=== PATIENT | female | born 1990 | race Caucasian/White ===

== ENCOUNTER → 2016-12-11 | Outpatient (CLI) | payer BC ==
[2016-12-11 14:31] LABS: Basophils % (A) 1 %; CH 29.9; CHCM 33.6; Eosinophils # (A) 0.1 k/uL (0-0.7); Eosinophils % (A) 2 %; HCT 39.9 % (34.0-46.0); HDW 2.41; HGB 13.2 gm/dL (11.4-16.0); Luc # (Auto) 0.07; Luc % (Auto) 2; Lymphocytes # (A) 1.6 k/uL (1.0-4.8); Lymphocytes % (A) 32 %; MCH 29.6 pg (25.0-35.0); MCHC 33.1 g/dL (31.0-37.0); MCV 89.5 fL (80.0-100.0); Mean Platelet Volume 6.3; Monocytes # (A) 0.2 k/uL (0-1.0); Monocytes % (A) 4 %; Neutrophils # (A) 2.9 k/uL (1.3-7.7); Neutrophils % (A) 59 %; RBC 4.46 m/uL (3.80-5.40); RDW 12.3 % (11.5-15.5); WBC 4.9 k/uL (3.8-10.6); WBC (Perox) 5.43
== END | disposition home or self-care (01) ==
LOC: LABPAT 14:14
PROVIDERS: ATTEND Obstetrics & Gynecology
DX: Z01.812 Encounter for preprocedural laboratory examination (principal)
CPT/HCPCS: 85025

== ENCOUNTER 2016-12-30 07:16 | Day surgery (SDC) | payer BC ==
[2016-12-24 16:19] VITALS: BMI 25.8
--- NOTE | 2016-12-29 12:14 | HP ---
DATE OF ADMISSION: This is a 26-year-old female 0 who presents for cold knife conization for a history of abnormal Pap smear, followed by colposcopy. Colposcopically directed biopsies were performed by me in the office on 11/18 16, along with an endometrial biopsy. Endometrial biopsy was limited, however consistent with focal weekly proliferative features and break down endometrium. Biopsies of the cervix on colposcopy revealed high-grade squamous intraepithelial lesion, performed by my nurse practitioner, Jenna Harvey. Patient was counseled regarding these results, and decision was made to proceed with cold knife conization and D&C. Lesion was noted to be on the cervix at approximately 10 o'clock. All questions are answered, ACOG pamphlet on this procedure have been provided. PAST MEDICAL HISTORY: Significant for Jaci's thyroiditis as well as migraine headaches. PAST SURGICAL HISTORY: Left ACL repair in 2017. CURRENT MEDICATIONS: Nature thyroid 32.5 mg, 2 tabs in the morning and 1 tab in the afternoon. Allergies include CODEINE to which she reports hypotension. Family history is significant for diabetes, heart disease and renal failure in the grandparents. REPRODUCTIVE HISTORY: Menarche began at the age of 15. Patient uses condoms for contraception. Menses are regular and on a monthly basis. SOCIAL HISTORY: Patient denies tobacco use. She works with local [employer]. She reports social alcohol use. Review of systems is otherwise negative. On exam, this is a pleasant young female, 5 feet 6 inches, 161 pounds, BMI 25. The general exam is within normal limits. HEENT exam reveals no obvious thyromegaly, good dentition, good range of motion in the neck. The breasts are bilaterally symmetric to inspection with no skin dimpling, nipple discharge or axillary lesions or masses. Abdomen is soft and nontender, no organosplenomegaly, active bowel sounds. No CVA tenderness. Extremities reveal no edema, good range of motion, good peripheral pulses. Cervix is nulliparous to inspection. On colposcopic examination, there are acetowhite changes and increased vascular changes at 10 o'clock. The uterus is otherwise small, mobile, nontender, midline. Negative adnexa bilaterally. IMPRESSION: High-grade intraepithelial lesion for cold knife conization and D&C. PLAN: The risks, benefits, and alternatives of this procedure have been discussed with the patient. All questions answered. She understands the risk of bleeding, infection, perforation or damage to the cervix, ureters, bowel, bladder, uterus. She understands the risks of anesthesia, aspiration, nerve damage or even . Again, pamphlets have been provided and patient has reviewed them. I believe the patient understands the discussion with no question or further reservation.
[~2016-12-30 07:16] MED LIST: DEXAMETHASONE SOD PHOSPHATE 10 MG/ML 1 ML VIAL IV ONE; MIDAZOLAM 2 MG/2 ML VIAL IV PRN; ONDANSETRON 4 MG/2 ML VIAL IVP ONE; SCOPOLAMINE 1.5MG/72HR PATCH TRANSDERM ONE; ceFAZolin 2 GM in SODIUM CHLORIDE 0.9% 100 ML IVPB ONE
[2016-12-30] MEDS ORDERED: LIDOCAINE 1% 20 ML VIAL (10MG/ML) FOR IV START INTRADERMA ONE (07:34)
[2016-12-30] MEDS: LACTATED RINGERS 1,000 ML IV SCH ×3 (07:35→11:25)
[2016-12-30] MEDS ORDERED: fentaNYL (PF) 50 MCG/ML 2 ML AMP ONE (08:44)
[2016-12-30] MEDS ORDERED: MIDAZOLAM 2 MG/2 ML VIAL ONE (08:44)
[2016-12-30] MEDS ORDERED: KETOROLAC 30 MG/ML 1 ML VIAL ONE (08:44)
[2016-12-30] MEDS ORDERED: LIDOCAINE 1% INJ 10MG/ML (20 ML MDV) ONE (08:44)
[2016-12-30] MEDS ORDERED: PROPOFOL 10 MG/ML 20 ML VIAL IV ONE (08:44)
[2016-12-30] MEDS ORDERED: VASOPRESSIN 20 UNIT/ML 1 ML VIAL SQ ONE (09:04)
[2016-12-30] MEDS ORDERED: FERRIC SUBSULFATE (MONSELS) JAR TOPICAL ONE (09:06)
--- NOTE | 2016-12-30 09:18 | P.OP ---
Date of Procedure: 12/30/16 Preoperative Diagnosis: High grade squamous intraepithelial lesion, possible glandular dysplasia, positive ECC. Postoperative Diagnosis: Pathology pending Procedure(s) Performed: D&C of the uterine cavity, cold knife conization, ECC Implants: Anesthesia: GETA Surgeon: Samia Cain Estimated Blood Loss (ml): 20 IV fluids (ml): 500 Urine output (ml): 200 Pathology: other (Intrauterine curettings, cold knife conization sutured tagged at 12:00, endocervical curettings post conization) Disposition: PACU Indications for Procedure: Operative Findings: Description of Procedure: Patient is brought to the operating suite. She is placed in the dorsal lithotomy position after general anesthetic is administered. The appropriate timeout is performed, urine hCG is negative. The cervix, vagina, perineal bodies are all prepped and draped in usual sterile fashion. Examination under anesthesia reveals an anteverted uterus, small and mobile, adnexa negative bilaterally. Bladder is drained for approximately 200 mL of clear yellow urine. Weighted speculum was placed into the vagina. The anterior lip of the cervix is grasped with a double-tooth tenaculum. Uterus sounds to 8 cm in the anteverted position. Cervix is gently and systematically dilated using Hanks dilators. A medium sharp curette is used and the uterine cavity is curettaged thoroughly. Specimen is sent to pathology. 0 Vicryl suture is then placed for hemostatic purposes on the left aspect of the cervix, and again on the right, and held with hemostats. The cervix is injected then with dilute Pitressin solution. A scalpel is used at 12:00 and the conization specimen is removed, suture tied at 12:00, and sent to pathology for evaluation. Care is taken to include the entire lesion at 12:00 as noted colposcopically. An ECC is then performed and sent under separate cover after the conization is completed. The cervical base is then cauterized thoroughly with electrocautery. Monsel solution is placed. This a stitches are removed. Hemostasis is excellent. Patient is brought back to the recovery room in very good condition, with stable vital signs including blood pressure 105/58, pulse 68, 99% O2 saturation. All sponge, needle and enhancement counts are correct. Toradol is given prior to leaving the operative suite. Patient will follow-up with me in the office in 2 weeks.
[2016-12-30 09:30] VITALS: TEMP 97
[2016-12-30 10:19] VITALS: RESP 16
[2016-12-30 10:59] VITALS: BP 105/70; PULSE 70
== END 2016-12-30 12:04 | disposition home or self-care (01) ==
LOC: OR 07:16
PROVIDERS: ATTEND Obstetrics & Gynecology
DX: N87.1 Moderate cervical dysplasia (principal); E06.3 Autoimmune thyroiditis; Z79.899 Other long term (current) drug therapy; Z88.5 Allergy status to narcotic agent
CPT/HCPCS: 57520; 81025; 88305; 88342; 88307; J2250; J1100; J0690; J2405; J2001; J3010; J1885; J2704

== ENCOUNTER → 2017-11-06 | Outpatient (CLI) | payer BC ==
[2017-11-06 11:14] LABS: T4, Free (Free Thyroxine) 0.72 ng/dL (0.78-2.19)
== END | disposition home or self-care (01) ==
LOC: LABWHC1 09:59
PROVIDERS: ATTEND Clinical Nurse Specialist Women's Health
DX: E03.9 Hypothyroidism, unspecified (principal)
CPT/HCPCS: 36415; 84439; 84481

== ENCOUNTER 2018-11-26 05:24 | Inpatient (IN) | payer BC ==
[2018-11-26] MEDS ORDERED: TERBUTALINE 1 MG/ML VIAL SQ PRN (06:47)
[2018-11-26] MEDS ORDERED: CARBOPROST TROMETHAMINE 250 MCG/ML 1 ML AMP IM PRN (06:47)
[2018-11-26] MEDS ORDERED: METHYLERGONOVINE 0.2 MG/ML 1 ML AMP IM PRN (06:47)
[2018-11-26] MEDS ORDERED: OXYTOCIN 10 UNIT/ML 1 ML VIAL IM PRN (06:47)
[2018-11-26] MEDS ORDERED: LIDOCAINE 0.5% (PF) 5 MG/ML (50 ML SDV) SQ PRN (06:47)
[2018-11-26] MEDS ORDERED: LACTATED RINGERS 1,000 ML IV SCH (07:00)
--- NOTE | 2018-11-26 07:41 | P.HPOB ---
History of Present Illness H&P Date: 11/26/18 This is a 27-year-old white female 1 para 0 EDC 12/04/2018 at 38-6/7 weeks' gestation. Patient presented in active spontaneous labor. She was 3 cm on admission, 7 cm 45 minutes later. She denied fluid leakage or vaginal bleeding. Fetus is been active for the . Past medical history is significant for Jaci's thyroiditis, and migraine headaches. Patient also has a history of anemia. Past surgical history left ACL repair, cold knife conization, D&C. Current medications and he thyroid 90 mg every morning, vitamins daily. ALLERGIES include Vicodin to which reports hypotension. Family history significant for renal failure, diabetes, heart disease. Social history patient has never been a smoker, she denies alcohol or drug use. She is to her [place] was present. 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 history blood type is A+, rubella status immune. Urine culture, hepatitis B surface antigen, HIV testing, gonorrhea and chlamydia cultures, group B strep cultures all negative. One-hour Glucola 79. On exam this is a pleasant white female in obvious distress, she is 5 foot 6-1/2 inches, approximately 198 pounds, vital signs are stable and the patient is afebrile. General physical exam is within normal limits. Patient is completely dilated on my examination, vertex presentation, 100% effaced, 0 station. Artificial amniorrhexis revealed clear fluid. heart rate reassuring in the 140s baseline with frequent accelerations. Impression: 38-6/7 weeks intrauterine , active spontaneous labor. Plan: Anticipate normal spontaneous vaginal delivery. Review of Systems Negative except as in HPI Past Medical History Past Medical History: Thyroid Disorder Additional Past Medical History / Comment(s): HX PAST ANEMIA. RECENT ABN. PAP History of Any Multi-Drug Resistant Organisms: None Reported Past Surgical History: Orthopedic Surgery Additional Past Surgical History / Comment(s): LT ACL REPAIR Past Anesthesia/Blood Transfusion Reactions: Motion Sickness Smoking Status: Never smoker - Past Family History Mother Family Medical History: No Reported History Medications and Allergies Home Medications Medication Instructions Recorded Confirmed Type Thyroid,Pork [Nature-Throid] 60 mg PO BID 11/26/18 11/26/18 History Allergies Allergy/AdvReac Type Severity Reaction Status Date / Time hydrocodone [From Vicodin] AdvReac DROPS B/P Verified 12/24/16 16:11 VERY LOW Exam Vital Signs Temp Pulse Resp BP BP Pulse Ox 11/26/18 07:31 97.7 F 96 16 131/83 11/26/18 05:37 97.3 F L 71 16 137/88 98 Intake and Output 11/25/18 11/26/18 11/26/18 22:59 06:59 14:59 Other: Weight 94.347 kg As dictated in HPI, please. Assessment and Plan Assessment: 38-6/7 weeks intrauterine , active spontaneous labor. Plan: Anticipate normal spontaneous vaginal delivery. Time with Patient: Less than 30
[2018-11-26 07:43] VITALS: BMI 33.5
--- NOTE | 2018-11-26 07:43 | P.PROBDLV ---
Vaginal Delivery Note - . Vaginal Delivery Note: This is a 27-year-old white female 1 para 0 EDC 12/04/2018 at 38-6/7 weeks' gestation. Patient presented in active spontaneous labor. essentially unremarkable. Group B strep cultures negative, rubella status immune, blood type A positive. Please see my dictated history and physical for details. Artificial amniorrhexis revealed clear fluid. Perineal body was prepped and draped in the usual sterile fashion. With excellent maternal expulsive efforts infant's head delivered occiput anterior and she restituted accordingly. There was no nuchal cord noted. The right or anterior shoulder was delivered from underneath the pubic symphysis at which time the oropharynx, nasopharynx, and external nares were all bulb suctioned on the perineal body. Patient was officially delivered of a liveborn female at 0716 hours. The umbilical cord was doubly clamped and ligated, she was handed to waiting nurses for evaluation where scores of 8 and 9 at one and 5 minutes respectively were given. The uterus is then massaged. Spontaneous delivery of the placenta occurred at 0719 hours. It was inspected, noted to be intact with trivascular cord. At this time oxytocin was given. Inspection of cervix, vagina, perineum, periurethral, and perirectal areas revealed a small first-degree perineal laceration. This was injected with lidocaine and repaired in the usual fashion using 3-0 Vicryl suture. Excellent reapproximation was noted. Fundus is firm, midline, symmetric, 18 week size. There is minimal to moderate lochia rubra noted. Infant weighed 6 lbs. 13 oz. or 09/24/2004 grams. All sponge needle and enhancement counts are correct at the end of the procedure.
[2018-11-26] MEDS ORDERED: diphenhydrAMINE 50 MG/ML 1 ML VIAL IVP PRN ×2 (07:46)
[2018-11-26] MEDS ORDERED: ACETAMINOPHEN TAB 325 MG TAB PO PRN (07:46)
[2018-11-26] MEDS ORDERED: diphenhydrAMINE 50 MG CAP PO PRN (07:46)
[2018-11-26] MEDS ORDERED: WITCH HAZEL 1 EACH MED..PAD TOPICAL PRN (07:46)
[2018-11-26] MEDS ORDERED: diphenhydrAMINE 25 MG CAP PO PRN (07:46)
[2018-11-26] MEDS ORDERED: SIMETHICONE 80 MG CHEWABLE PO PRN (07:46)
[2018-11-26] MEDS ORDERED: HYDROCORTISONE 2.5% RECTAL CREAM 30 GM TUBE RECTAL PRN (07:46)
[2018-11-26] MEDS ORDERED: LANOLIN CREAM 5 GM TUBE TOPICAL PRN (07:46)
[2018-11-26] MEDS ORDERED: ZOLPIDEM 5 MG TAB PO PRN (07:46)
[2018-11-26] MEDS ORDERED: BENZOCAINE/MENTHOL SPRAY 1 GM/SPRAY AEROSOL TOPICAL PRN (07:46)
[2018-11-26 07:49] LABS: Basophils % (A) 0 %; Eosinophils # (A) 0.1 k/uL (0-0.7); Eosinophils % (A) 0 %; HCT 42.6 % (34.0-46.0); Lymphocytes # (A) 1.9 k/uL (1.0-4.8); Lymphocytes % (A) 15 %; MCH 30.5 pg (25.0-35.0); MCHC 32.9 g/dL (31.0-37.0); MCV 92.7 fL (80.0-100.0); Monocytes # (A) 0.5 k/uL (0-1.0); Monocytes % (A) 4 %; Neutrophils # (A) 10.1 k/uL (1.3-7.7); Neutrophils % (A) 79 %; Platelet Count 276 k/uL (150-450); RDW 13.2 % (11.5-15.5); WBC 12.8 k/uL (3.8-10.6)
[2018-11-26] MEDS ORDERED: OXYTOCIN 20 UNITS/1000 ML NS 1,000 ML IV SCH (08:00)
[2018-11-26] MEDS ORDERED: THYROID PO SCH (09:00)
[2018-11-26] MEDS: SENNOSIDES-DOCUSATE SODIUM 1 EACH TAB PO SCH ×2 (18:11→20:33)
[2018-11-27] MEDS: SENNOSIDES-DOCUSATE SODIUM 1 EACH TAB PO SCH ×2 (07:46→23:45)
--- NOTE | 2018-11-27 08:05 | P.DS ---
Providers Date of admission: 11/26/18 06:41 Expected date of discharge: 11/27/18 Attending physician: Samia Cain Primary care physician: Stated None - Discharge Diagnosis(es) (1) Term Current Visit: Yes Status: Acute (2) Active labor at term Current Visit: Yes Status: Acute (3) Status post vaginal delivery Current Visit: Yes Status: Acute Hospital Course: This is a pleasant 27-year-old 1 para 0 at 38-6/7 weeks that presented to labor and delivery on 11/26/18 in active spontaneous labor. Patient was noted to be 3 cm and quickly progressed to 7 cm. Patient's course has been uneventful and she was receiving routine care with Dr. Cain. Patient was admitted to labor and delivery amniotomy was performed and pt progressed to complete and had a normal spontaneous vaginal delivery of a viable female infant at 716, weight of 6 lbs. 13 oz. with Apgars of 8 and 9 at one and 5 minutes respectively. Patient did sustain a first-degree laceration which was repaired in the usual fashion. Patient's course has been uneventful. She is ambulating and voiding without difficulty. She is tolerating a regular diet without nausea or vomiting. She states her lochia is moderate. She is breast-feeding. She is feeling well and wishes discharge home at 24 hours. Patient Condition at Discharge: Good Plan - Discharge Summary New Discharge Prescriptions: No Action Thyroid,Pork [Nature-Throid] 60 mg PO BID Discharge Medication List Thyroid,Pork [Nature-Throid] 60 mg PO BID 11/26/18 [History] Follow up Appointment(s)/Referral(s): Samia Cain MD [STAFF PHYSICIAN] - 6 Weeks Patient Instructions/Handouts: Vaginal Delivery (DC), Vaginal Delivery (GEN) Discharge Disposition: HOME SELF-CARE
[2018-11-27] MEDS: IBUPROFEN 600 MG TAB PO PRN ×2 (13:58→21:55)
[2018-11-28] MEDS: IBUPROFEN 600 MG TAB PO PRN (06:40)
--- NOTE | 2018-11-28 07:58 | P.PNOBGVD ---
Subjective - Subjective Principal diagnosis: PPD 2 Interval history: This 27-year-old 1 para 1 status post normal spontaneous vaginal delivery, day #2. Patient has done well. She did end up staying one more day due to 2 jaundice of the . Her daughter remains in the special care nursery under bili lights. Patient is ambulating and voiding without difficulty. She is tolerating a regular diet without nausea or vomiting. She denies concerns for herself. She is breast feeding. Patient reports: Reports appetite normal, Reports voiding normally, Reports pain well controlled, Reports ambulating normally : doing well (In special care nursery under bili lights, awaiting repeat blood draw) Objective - Latest Vital Signs Latest vital signs: Vital Signs Temp Pulse Resp BP Pulse Ox 11/27/18 23:44 97.8 F 71 16 135/85 11/27/18 16:00 98.7 F 87 18 120/67 97 11/27/18 08:05 97.8 F 89 18 117/72 97 Intake and Output 11/27/18 11/28/18 11/28/18 22:59 06:59 14:59 Other: # Voids 1 1 # Bowel Movements 1 - Exam Extremities: Present: edema Abdomen: Present: normal appearance, soft Uterus: Present: normal, firm Assessment and Plan (1) Term Current Visit: Yes Status: Acute Code(s): Z34.90 - ENCNTR FOR SUPRVSN OF NORMAL , UNSP, UNSP TRIMESTER SNOMED Code(s): 28363494 (2) Active labor at term Current Visit: Yes Status: Acute Code(s): DVK6643 - SNOMED Code(s): 61434918 (3) Status post vaginal delivery Current Visit: Yes Status: Acute Code(s): AMU1109 - SNOMED Code(s): 075372324 Plan: We'll plan discharge home later today. Awaiting infant's discharge pending blood draw and pediatric discharge. instructions were reviewed with the patient yesterday and she will follow-up with Dr. Cain in 6 weeks for routine care.
[2018-11-28] MEDS: SENNOSIDES-DOCUSATE SODIUM 1 EACH TAB PO SCH (08:22)
[2018-11-28 10:31] VITALS: RESP 18
[2018-11-28 17:29] VITALS: BP 124/76; PULSE 71; TEMP 98
== END 2018-11-28 20:50 | disposition home or self-care (01) | DRG 807 ==
LOC: FBPOP 05:24 → 4FBP 06:41
PROVIDERS: ADMIT Obstetrics & Gynecology; ATTEND Obstetrics & Gynecology
PROC: 10E0XZZ Delivery of Products of Conception, External Approach (ICD-10-PCS; principal; 2018-11-26)
PROC: 0HQ9XZZ Repair Perineum Skin, External Approach (ICD-10-PCS; 2018-11-26)
DX: O70.0 First degree perineal laceration during delivery (principal); Z37.0 Single live birth; Z3A.38 38 weeks gestation of pregnancy; O99.284 Endocrine, nutritional and metabolic diseases complicating childbirth; E06.3 Autoimmune thyroiditis; O28.2 Abnormal cytological finding on antenatal screening of mother; G43.909 Migraine, unspecified, not intractable, without status migrainosus; Z79.899 Other long term (current) drug therapy; Z98.890 Other specified postprocedural states; Z88.5 Allergy status to narcotic agent; Z83.3 Family history of diabetes mellitus; Z84.1 Family history of disorders of kidney and ureter; Z82.49 Family history of ischemic heart disease and other diseases of the circulatory system
CPT/HCPCS: 59025; 85025; 86850; 86900; 86901; 99213

== ENCOUNTER 2020-03-17 15:47 | Inpatient (IN) | payer BC ==
[2020-03-20] MEDS ORDERED: CARBOPROST TROMETHAMINE 250 MCG/ML 1 ML AMP IM PRN (06:19)
[2020-03-20] MEDS ORDERED: METHYLERGONOVINE 0.2 MG/ML 1 ML AMP IM PRN (06:19)
[2020-03-20] MEDS ORDERED: LIDOCAINE 0.5% (PF) 5 MG/ML (50 ML SDV) SQ PRN (06:19)
[2020-03-20] MEDS ORDERED: OXYTOCIN 10 UNIT/ML 1 ML VIAL IM PRN (06:19)
[2020-03-20] MEDS ORDERED: TERBUTALINE 1 MG/ML VIAL SQ PRN (06:19)
[2020-03-20] MEDS ORDERED: LACTATED RINGERS 1,000 ML IV SCH (06:30)
[2020-03-20] MEDS ORDERED: OXYTOCIN 30 UNITS/500 ML NS 30 UNIT in SALINE 1 500ML.BAG IV SCH (06:30)
[2020-03-20 06:45] LABS: Basophils % (A) 0 %; Eosinophils # (A) 0.1 k/uL (0-0.7); Eosinophils % (A) 1 %; HCT 39.9 % (34.0-46.0); HGB 12.9 gm/dL (11.4-16.0); Lymphocytes # (A) 2.1 k/uL (1.0-4.8); Lymphocytes % (A) 20 %; MCHC 32.3 g/dL (31.0-37.0); MCV 89.9 fL (80.0-100.0); Mean Platelet Volume 7.5; Monocytes # (A) 0.6 k/uL (0-1.0); Monocytes % (A) 6 %; Neutrophils # (A) 7.2 k/uL (1.3-7.7); Neutrophils % (A) 71 %; Platelet Count 204 k/uL (150-450); RBC 4.44 m/uL (3.80-5.40); WBC 10.3 k/uL (3.8-10.6)
--- NOTE | 2020-03-20 07:27 | P.HPOB ---
History of Present Illness H&P Date: 03/20/20 This is a 29-year-old white female 2 para 1001 EDC 03/17/2020 at 40-3/7 weeks' gestation. Patient presents today with favorable multiparous cervix for induction of labor for postdates status. Fetus is been active throughout the . She denies vaginal bleeding or fluid leakage. Past medical history is significant for Jaci's thyroiditis, and migraine headaches. Past surgical history cold knife conization 2017, D&C, left ACL repair. Current medications an P thyroid 90 mg twice daily. vitamin daily. ALLERGIES include Vicodin to which reports hypotension, seasonal ALLERGIES noted. Family history significant for heart disease, renal failure, diabetes. Social history patient is , she has never been a smoker, she denies alcohol or drug use. history is significant for blood type A+, rubella status immune. VDRL testing, urine culture, hepatitis B surface antigen, HIV testing, group B strep cultures all negative. One-hour Glucola 108. Thyroid function studies checked in the are within normal limits. On exam this is a pleasant female who is 5 foot 6 inches, 206 pounds, blood pressure 135/75 on admission. General physical exam is within normal limits. Extremities reveal no edema. Cervix is 4 cm dilated, 90% effaced, -1 station. Artificial amniorrhexis reveals clear fluid. heart rate is consistent with reactive NST. Impression: 40-3/7 weeks intrauterine , favorable cervix, here for induction of labor, all signs reassuring. Plan: Oxytocin per hospital protocol. Analgesic options have been reviewed. Close maternal and surveillance. Anticipate normal spontaneous vaginal delivery. Review of Systems Constitutional: Reports as per HPI Past Medical History Past Medical History: Thyroid Disorder Additional Past Medical History / Comment(s): HX PAST ANEMIA. RECENT ABN. PAP History of Any Multi-Drug Resistant Organisms: None Reported Past Surgical History: Orthopedic Surgery Additional Past Surgical History / Comment(s): LT ACL REPAIR Past Anesthesia/Blood Transfusion Reactions: Motion Sickness Past Psychological History: No Psychological Hx Reported Smoking Status: Never smoker Past Alcohol Use History: None Reported Past Drug Use History: None Reported - Past Family History Mother Family Medical History: No Reported History Medications and Allergies Home Medications Medication Instructions Recorded Confirmed Type Pnv No.95/Ferrous Fum/Folic AC 1 each PO DAILY 03/20/20 03/20/20 History [ Multivitamin Tablet] Thyroid,Pork [Para Educator Thyroid] 90 mg PO HS 03/20/20 03/20/20 History Thyroid,Pork [Para Educator Thyroid] 120 mg PO QAM 03/20/20 03/20/20 History Allergies Allergy/AdvReac Type Severity Reaction Status Date / Time hydrocodone [From Vicodin] AdvReac DROPS B/P Verified 03/20/20 06:18 VERY LOW Exam Vital Signs Temp Pulse Resp BP Pulse Ox 03/20/20 06:27 96.4 F L 70 16 135/75 100 Intake and Output 03/19/20 03/20/20 03/20/20 22:59 06:59 14:59 Other: Weight 93.44 kg See dictation under HPI please Results Result Diagrams: 03/20/20 06:15 Assessment and Plan Plan: Oxytocin per hospital protocol. Close maternal and surveillance. Anticipate normal spontaneous vaginal delivery. Time with Patient: Less than 30
[2020-03-20] MEDS ORDERED: LANOLIN CREAM 5 GM TUBE TOPICAL PRN (08:55)
[2020-03-20] MEDS ORDERED: ACETAMINOPHEN TAB 325 MG TAB PO PRN (08:55)
[2020-03-20] MEDS ORDERED: diphenhydrAMINE 25 MG CAP PO PRN (08:55)
[2020-03-20] MEDS ORDERED: HYDROCORTISONE 2.5% RECTAL CREAM 30 GM TUBE RECTAL PRN (08:55)
[2020-03-20] MEDS ORDERED: IBUPROFEN 600 MG TAB PO PRN (08:55)
[2020-03-20] MEDS ORDERED: SIMETHICONE 80 MG CHEWABLE PO PRN (08:55)
[2020-03-20] MEDS ORDERED: diphenhydrAMINE 50 MG CAP PO PRN (08:55)
[2020-03-20] MEDS ORDERED: ZOLPIDEM 5 MG TAB PO PRN (08:55)
[2020-03-20] MEDS ORDERED: diphenhydrAMINE 50 MG/ML 1 ML VIAL IVP PRN ×2 (08:55)
[2020-03-20] MEDS ORDERED: BENZOCAINE/MENTHOL SPRAY 1 GM/SPRAY AEROSOL TOPICAL PRN (08:55)
[2020-03-20] MEDS ORDERED: diphenhydrAMINE ELIXIR 25 MG/10 ML CUP PO PRN (08:55)
--- NOTE | 2020-03-20 08:55 | P.PROBDLV ---
Vaginal Delivery Note - . Vaginal Delivery Note: This is a 29-year-old white female 2 para 1001 EDC 03/17/2020 at 40-3/7 weeks' gestation. Patient presented for induction for postdates , group strep culture negative, blood type A+, rubella status immune. Please see dictated history and physical for details. Artificial amniorrhexis revealed clear fluid. Oxytocin was started and titrated per hospital protocol. heart tones were reassuring throughout the first and second stages of labor. Patient very quickly became completely dilated at 0833 hours. Perineal body was prepped and draped in usual sterile fashion. With excellent maternal expulsive efforts 's head crowned occiput anterior and he restituted accordingly. There was a nuchal cord 1 that was reduced on the perineal body. The right or anterior shoulder was delivered from underneath the pubic symphysis gently, at which time the oropharynx, nasopharynx, and external nares were all bulb suctioned on the perineal body. Patient was officially delivered of a liveborn male infant at 0838 hours. The umbilical cord was doubly clamped and ligated, he was handed to waiting nurses for evaluation where scores of 9 and 9 at one and 5 minutes respectively were given. Infant weighs 8 lbs. 5 oz. or 3765 g. The placenta was delivered spontaneously, it was inspected and noted to be intact with trivascular cord at 0841 hours. At this time the perineal body was redraped. Careful inspection of the cervix, vagina, perineum, periurethral, and perirectal areas revealed a very small first-degree laceration that was repaired with 4 mL of lidocaine and a single [id number] suture of 3-0 Vicryl. Excellent reapp roximation was noted. Fundus is firm and in the midline, symmetric and 18 week size. Total estimated blood loss 200 mL's. The patient and her are allowed to begin the bonding experience in the LDR. Patient is requesting circumcision for her son. Likely discharge home for patient and infant tomorrow morning.
[2020-03-20] MEDS ORDERED: OXYTOCIN 20 UNITS/1000 ML NS 1,000 ML IV SCH (09:00)
[2020-03-20] MEDS: SENNOSIDES-DOCUSATE SODIUM 1 EACH TAB PO SCH (19:48)
[2020-03-20 20:25] VITALS: RESP 16
--- NOTE | 2020-03-21 07:20 | P.DS ---
Providers Date of admission: 03/20/20 06:06 Expected date of discharge: 03/21/20 Attending physician: Samia Cain Primary care physician: Stated None Hospital Course: This is a 29-year-old white female 2 para 1001 EDC 03/17/2020 at 40-3/7 weeks' gestation who presented yesterday for induction for postdates with favorable multiparous cervix. is essentially unremarkable, group B strep cultures negative, rubella status immune. Blood type A+. Please see dictated history and physical for details. Artificial amniorrhexis was performed. Oxytocin was started and titrated. Patient went on to swiftly deliver a liveborn male vaginally. He weighed 8 lbs. 5 oz. or 3765 g. scores were 9 and 9 at one and 5 minutes respectively, there was a nuchal cord 1 that was reduced. First-degree perineal laceration was encountered and easily repaired. Please see dictated delivery note for details. This morning the patient and her are doing well. Patient is voiding, ambulating, passing flatus without difficulty. Vital signs are stable and she is afebrile. Fundus is firm and in the midline, symmetric and 18 week size. Extremities are negative for edema. Patient is judged to be in very good condition for discharge home. She will follow-up with me in the office in 6 weeks. I have reminded her no intercourse, tampons or douching. She will use [id number] Advil or Aleve, or Motrin as needed for pain. She will call with any fevers shakes or chills, foul smelling or copious lochia, with the passage of large blood clots, with any pain not alleviated by [id number] products, or indeed with any concerns. will follow-up with second steward as per recommendations. Assessment: Doing very well day #1 Patient Condition at Discharge: Good Plan - Discharge Summary Discharge Rx Participant: No New Discharge Prescriptions: No Action Thyroid,Pork [Grocery Clerk Selling Thyroid] 90 mg PO HS Thyroid,Pork [Grocery Clerk Selling Thyroid] 120 mg PO QAM Pnv No.95/Ferrous Fum/Folic AC [ Multivitamin Tablet] 1 each PO DAILY Discharge Medication List Pnv No.95/Ferrous Fum/Folic AC [ Multivitamin Tablet] 1 each PO DAILY 03/20/20 [History] Thyroid,Pork [Grocery Clerk Selling Thyroid] 90 mg PO HS 03/20/20 [History] Thyroid,Pork [Grocery Clerk Selling Thyroid] 120 mg PO QAM 03/20/20 [History] Follow up Appointment(s)/Referral(s): Samia Cain MD [STAFF PHYSICIAN] - 6 Weeks Discharge Disposition: HOME SELF-CARE
[2020-03-21 08:19] VITALS: BP 105/67; PULSE 77; TEMP 98.5
[2020-03-21] MEDS: SENNOSIDES-DOCUSATE SODIUM 1 EACH TAB PO SCH (08:25)
== END 2020-03-21 12:17 | disposition home or self-care (01) | DRG 806 ==
LOC: 4FBP 03-20 06:06
PROVIDERS: ADMIT Obstetrics & Gynecology; ATTEND Obstetrics & Gynecology
PROC: 0HQ9XZZ Repair Perineum Skin, External Approach (ICD-10-PCS; principal; 2020-03-20)
PROC: 10907ZC Drainage of Amniotic Fluid, Therapeutic from Products of Conception, Via Natural or Artificial Opening (ICD-10-PCS; principal; 2020-03-20)
PROC: 3E033VJ Introduction of Other Hormone into Peripheral Vein, Percutaneous Approach (ICD-10-PCS; principal; 2020-03-20)
PROC: 10E0XZZ Delivery of Products of Conception, External Approach (ICD-10-PCS; principal; 2020-03-20)
DX: O48.0 Post-term pregnancy (principal); O99.354 Diseases of the nervous system complicating childbirth; Z37.0 Single live birth; O69.81X0 Labor and delivery complicated by cord around neck, without compression, not applicable or unspecified; O99.284 Endocrine, nutritional and metabolic diseases complicating childbirth; E06.3 Autoimmune thyroiditis; O99.52 Diseases of the respiratory system complicating childbirth; J30.2 Other seasonal allergic rhinitis; O70.0 First degree perineal laceration during delivery; G43.909 Migraine, unspecified, not intractable, without status migrainosus; Z3A.40 40 weeks gestation of pregnancy; Z88.5 Allergy status to narcotic agent; Z79.899 Other long term (current) drug therapy; Z83.3 Family history of diabetes mellitus; Z82.49 Family history of ischemic heart disease and other diseases of the circulatory system; Z84.1 Family history of disorders of kidney and ureter
CPT/HCPCS: 85025; 86850; 86900; 86901